=== PATIENT | female | born 1990 | race Two or more races ===

== ENCOUNTER 2022-05-10 10:26 | Emergency (ER) | payer OTHER ==
[~2022-05-10] VITALS: Ht 157.5 cm; Wt 56.7 kg
== END 2022-05-10 15:52 | disposition home or self-care (01) ==
LOC: ER 10:26
DX: O20.9 Hemorrhage in early pregnancy, unspecified (principal); Z3A.11 11 weeks gestation of pregnancy

== ENCOUNTER 2022-11-12 10:27 | Outpatient (CLI) | payer OTHER | END 2022-11-12 12:51 | disposition home or self-care (01) | LOC: NST 10:27 | PROVIDERS: ATTEND Obstetrics & Gynecology | DX: Z34.83 Encounter for supervision of other normal pregnancy, third trimester (principal) ==

== ENCOUNTER 2022-11-17 07:13 | Inpatient (IN) | payer OTHER ==
[~2022-11-17] VITALS: Ht 157.5 cm; Wt 67.6 kg
[2022-11-17] MEDS ORDERED: PRENATAL + DHA1 EAC1 PO (09:06)
[2022-11-17] MEDS ORDERED: IRON18 MG PO (09:07)
== END 2022-11-19 13:18 | disposition home or self-care (01) | DRG 807 ==
LOC: LDR 07:13 → OB/GYN 14:19
PROVIDERS: ADMIT Obstetrics & Gynecology; ATTEND Obstetrics & Gynecology
PROC: 10E0XZZ Delivery of Products of Conception, External Approach (ICD-10-PCS; principal; 2022-11-17)
PROC: 0W8NXZZ Division of Female Perineum, External Approach (ICD-10-PCS; 2022-11-17)
PROC: 4A1HXCZ Monitoring of Products of Conception, Cardiac Rate, External Approach (ICD-10-PCS; 2022-11-17)
DX: O80 Encounter for full-term uncomplicated delivery (principal); Z37.0 Single live birth; Z3A.38 38 weeks gestation of pregnancy; Z20.822 Contact with and (suspected) exposure to COVID-19

== ENCOUNTER 2024-08-02 14:20 | Inpatient (IN) | payer OTHER ==
[~2024-08-02] VITALS: Ht 157.5 cm; Wt 71.2 kg
[~2024-08-02 14:20] MED LIST: IRON18 MG PO; PRENATAL + DHA1 EAC1 PO
[2024-08-26] VITALS (7 sets, daily range): BP systolic 116–135; BP diastolic 67–76
[2024-08-26] MEDS ORDERED: CHLORHEXIDINE GLUCONATE 120 ML BOTTLE TOP ONE ×3 (04:11→05:30)
[2024-08-26] MEDS ORDERED: LIDOCAINE HCL 1% 10ML VIAL ONE (04:11)
[2024-08-26] MEDS ORDERED: ERYTHROMYCIN BASE OPHT 1GM EACH TUBE OP ONE ×2 (04:11→05:00)
[2024-08-26] MEDS ORDERED: OXYTOCIN 20 UNITS/1000ML RL PIGGYBAG IV ONE (04:11)
[2024-08-26] MEDS ORDERED: RINGERS SOLUTION,LACTATED 1,000 ML IV SCH (04:15)
[2024-08-26 04:42] LABS: INR < 0.93; PARTIAL THROMBOPLASTIN TIME 26.6 SECONDS (22.0-34.0); PROTHROMBIN TIME 10.1 SECONDS (9.0-11.5)
[2024-08-26 04:50] LABS: BILIRUBIN TOTAL 0.32 mg/dL (0.3-1.2); CALCIUM 9.4 mg/dL (8.5-10.1); CREATININE SERUM 0.57 mg/dL (0.55-1.02); GFR 120.7; GLOBULINA 3.7 G/DL (2.4-3.5); POTASSIUM 4.15 mEq/L (3.5-5.1); TOTAL PROTEIN 6.7 gm/dL (6.4-8.2)
[2024-08-26] MEDS ORDERED: OXYTOCIN 1,000 ML IV SCH ×2 (05:00→05:30)
[2024-08-26] MEDS ORDERED: LIDOCAINE HCL 1% 10ML VIAL IJ ONE (05:00)
[2024-08-26] MEDS ORDERED: OxyCODONE HCL/APAP UD (PERCOCET) PO PRN (05:30)
[2024-08-26] MEDS ORDERED: KETOROLAC TROMETHAMINE 10 MG TABLET PO SCH (06:00)
[2024-08-26 06:18] LABS: HEMATOCRIT 33.7 % (36.0-45.00); HEMOGLOBIN 10.8 g/dL (12.0-15.00); MEAN CELL VOLUME 79.5 fL (80.00-100.00); MEAN CORPUSCULAR HEMOGLOBIN 25.5 pg (27.00-32.0); MEAN CORPUSCULAR HGB CONC 32.1 g/dl (32.0-36.0); PLATELET COUNT 298 K/uL (150-450); RED BLOOD COUNT 4.24 M/uL (4.00-6.00); RED CELL DISTRIBUTION WIDTH 17.2 % (11.5-14.5)
[2024-08-26] MEDS ORDERED: PNV,CALCIUM 72/IRON/FOLIC ACID 1 TAB TABLET PO SCH (09:00)
[2024-08-27] VITALS: BP 116/67
[2024-08-27 08:00] VITALS: BP 112/68
[2024-08-27 16:09] VITALS: BP 99/60
[2024-08-28 00:58] VITALS: BP 105/68
[2024-08-28 08:15] VITALS: BP 126/63
== END 2024-08-28 11:37 | disposition home or self-care (01) | DRG 807 ==
LOC: SURG 08-25 14:19 → LDR 08-26 04:01 → OB/GYN 08-26 04:01
PROVIDERS: Obstetrics & Gynecology Maternal & Fetal Medicine; ADMIT Obstetrics & Gynecology; ATTEND Obstetrics & Gynecology
PROC: 10E0XZZ Delivery of Products of Conception, External Approach (ICD-10-PCS; principal; 2024-08-26)
PROC: 0KQM0ZZ Repair Perineum Muscle, Open Approach (ICD-10-PCS; 2024-08-26)
PROC: 0W8NXZZ Division of Female Perineum, External Approach (ICD-10-PCS; 2024-08-26)
PROC: 4A1HXCZ Monitoring of Products of Conception, Cardiac Rate, External Approach (ICD-10-PCS; 2024-08-26)
DX: O70.1 Second degree perineal laceration during delivery (principal); Z37.0 Single live birth; Z3A.40 40 weeks gestation of pregnancy